=== PATIENT | female | born 1985 | race Caucasian/White ===

== ENCOUNTER 2017-02-04 18:35 | Inpatient (IN) | payer MEDICAID, OTHER ==
[~2017-02-04] VITALS: Ht 157.5 cm; Wt 65.5 kg
[2017-02-04] MEDS ORDERED: ADDE1TAB14 PO (19:47)
[2017-02-04] MEDS ORDERED: TRAZ-136 PO (19:47)
[2017-02-04] MEDS ORDERED: ADDE30CA3 PO (19:47)
[2017-02-04] MEDS ORDERED: CLON-412 PO (19:47)
[2017-02-04] MEDS ORDERED: VALI10TA PO (19:47)
[2017-02-04] MEDS ORDERED: HYDR50TA70 PO (19:47)
[2017-02-04] MEDS ORDERED: LEVO100T5 PO (19:47)
[2017-02-04 20:03] LABS: MEAN CORPUSCULAR HEMOGLOBIN 31.7 pg (27.0-33.0); MEAN CORPUSCULAR HGB CONC 34.7 g/dl (32.0-36.5); MEAN CORPUSCULAR VOLUME 91.4 fl (80.0-96.0); PLATELET COUNT, AUTOMATED 277 10^3/uL (150-450); RED CELL DISTRIBUTION WIDTH 12.4 % (11.5-14.5)
[2017-02-04 20:22] LABS: CONTROL LINE HCG INT CTR LINE PRESENT
[2017-02-04 20:29] LABS: METHADONE URINE NEGATIVE (NEGATIVE)
[2017-02-04 20:38] LABS: ALBUMIN/GLOBULIN RATIO 1.14 (1.00-1.93); ALKALINE PHOSPHATASE 48 U/L (45-117); ALT/SGPT 18 U/L (12-78); ANION GAP 9 MEQ/L (8-16); AST/SGOT 9 U/L (7-37); BILIRUBIN,DIRECT 0.2 MG/DL (0.0-0.2); BILIRUBIN,TOTAL 0.5 MG/DL (0.2-1.0); BLOOD UREA NITROGEN 10 MG/DL (7-18); CALCIUM LEVEL 8.9 MG/DL (8.5-10.1); CARBON DIOXIDE LEVEL 29 MEQ/L (21-32); CHLORIDE LEVEL 104 MEQ/L (98-107); CREATININE FOR GFR 0.85 MG/DL (0.55-1.02); GLOMERULAR FILTRATION RATE > 60.0 (>60); GLUCOSE, FASTING 88 MG/DL (70-105); POTASSIUM SERUM 3.4 MEQ/L (3.5-5.1); SODIUM LEVEL 142 MEQ/L (136-145); TOTAL PROTEIN 7.5 GM/DL (6.4-8.2)
[2017-02-04] MEDS ORDERED: MOM 30ML SUSPENSION UDC PO PRN (21:45)
[2017-02-04] MEDS ORDERED: MAALOX 30 ML SUSP *UDC PO PRN (21:45)
[2017-02-04] MEDS ORDERED: traZODone 50 MG TAB PO PRN ×2 (21:45→23:15)
[2017-02-04 22:17] VITALS: BP 116/80
[2017-02-05] MEDS: diazePAM 5 MG TAB PO PRN ×2 (00:22→14:14)
[2017-02-05] MEDS ORDERED: LEVOTHYROXINE 100MCG TABLET (0.1MG) PO SCH (06:00)
[2017-02-05 07:12] VITALS: BP 114/65
[2017-02-05] MEDS: ACETAMINOPHEN TAB 650MG DOSE (2X325MG) PO PRN ×3 (08:28→20:20)
[2017-02-05] MEDS ORDERED: hydrOXYzine 50 MG TAB PO SCH (09:00)
[2017-02-05] MEDS ORDERED: traZODone 100 MG TAB PO PRN (13:47)
[2017-02-05] MEDS ORDERED: ADDERALL 5 MG TAB PO ONE (14:00)
[2017-02-05 18:36] VITALS: BP 123/65
[2017-02-05 20:19] VITALS: BP 108/64
[2017-02-05] MEDS ORDERED: cloNIDine 0.1 MG TAB PO SCH (21:00)
--- NOTE | 2017-02-05 22:40 | REPUSA ---
CT of the abdomen and pelvis without contrast Clinical statement: Pain. Technique: Multiple axial CT images were obtained from the base of the lungs to the floor of the pelv is utilizing 5 mm axial slices without administration of contrast. Coronal and sagittal reconstructio ns were also obtained. No comparison is available. Findings: Chest: The visualized lung bases are clear. Abdomen: The kidneys are normal in size bilaterally. There is extensive bilateral nephrolithiasis. Th ere is moderately severe right-sided hydronephrosis and hydroureter, caused by a 4 [address] sto ne in the proximal right ureter. The liver, spleen, pancreas, and adrenal glands are unremarkable. Th e aorta demonstrates normal caliber and contour. There is no abdominal lymphadenopathy or ascites. Pelvis: The bowel is unremarkable, with no obstructive or inflammatory changes. The appendix is nathalie l. The urinary bladder is within normal limits. There is no pelvic lymphadenopathy or ascites. The ot her pelvic structures appear unremarkable. Bones: There are no suspicious osseous abnormalities seen. Impression: 1. Moderately severe right-sided hydronephrosis and hydroureter caused by a 4 mm obstructing stone in the proximal right ureter. 2. Extensive bilateral nephrolithiasis. 3. No obstructive or inflammatory bowel changes.
[2017-02-06] MEDS ORDERED: TYLE650T35 PO (00:57)
[2017-02-06] MEDS ORDERED: CLONI1TA PO (00:57)
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
== END 2017-02-06 00:13 | disposition short-term general hospital (02) | DRG 755 ==
LOC: M ED 18:35 → M ED INP 21:33 → M PSY 22:07
PROVIDERS: ADMIT Psychiatry & Neurology Psychiatry; ATTEND Psychiatry & Neurology Psychiatry
DX: F43.20 Adjustment disorder, unspecified (principal); N13.2 Hydronephrosis with renal and ureteral calculous obstruction; F60.3 Borderline personality disorder; F43.10 Post-traumatic stress disorder, unspecified; F90.8 Attention-deficit hyperactivity disorder, other type; E03.9 Hypothyroidism, unspecified; Z88.0 Allergy status to penicillin; Z91.040 Latex allergy status; Z91.018 Allergy to other foods; Z90.49 Acquired absence of other specified parts of digestive tract; Z79.899 Other long term (current) drug therapy

== ENCOUNTER 2018-08-02 14:46 | Emergency (ER) | payer OTHER ==
[~2018-08-02] VITALS: Ht 157.5 cm; Wt 75.0 kg
[~2018-08-02 14:46] MED LIST: ADDE1TAB14 PO; ADDE30CA3 PO; CLON-412 PO; CLONI1TA PO; HYDR50TA70 PO; LEVO100T5 PO; TRAZ-163 PO; TYLE650T35 PO; VALI10TA PO
[2018-08-02] MEDS ORDERED: PRED20TA PO (14:59)
[2018-08-02] MEDS ORDERED: TIZA4CAP6 PO (14:59)
[2018-08-02] MEDS ORDERED: LEVO75TA4 (14:59)
[2018-08-02] MEDS ORDERED: ALPR1TAB3 (14:59)
[2018-08-02] MEDS ORDERED: KETOROLAC 60 MG/2 ML VIAL (J1885) IM ONE (15:30)
[2018-08-02] MEDS ORDERED: diazePAM 5 MG TAB PO ONE (15:30)
[2018-08-02] MEDS ORDERED: CYCL10TA PO (16:51)
[2018-08-02] MEDS ORDERED: SM 88TAB PO (16:51)
[2018-08-02] MEDS ORDERED: ULTR50TA8 PO (16:51)
[2018-08-02] MEDS ORDERED: PRED10TA2 PO (16:51)
[2018-08-02 16:56] VITALS: BP 119/57
== END 2018-08-02 17:06 | disposition home or self-care (01) ==
LOC: M ED 14:46
DX: M50.30 Other cervical disc degeneration, unspecified cervical region (principal); M54.12 Radiculopathy, cervical region; E03.9 Hypothyroidism, unspecified; G43.909 Migraine, unspecified, not intractable, without status migrainosus; K21.9 Gastro-esophageal reflux disease without esophagitis; F41.9 Anxiety disorder, unspecified; F43.10 Post-traumatic stress disorder, unspecified; F90.9 Attention-deficit hyperactivity disorder, unspecified type
CPT/HCPCS: 96372; 99283; J1885

== ENCOUNTER 2018-08-05 20:25 | Emergency (ER) | payer OTHER ==
[~2018-08-05] VITALS: Ht 157.5 cm; Wt 77.3 kg
[~2018-08-05 20:25] MED LIST changes: +ALPR1TAB3; +CYCL10TA PO; +LEVO75TA4; +PRED10TA2 PO; +PRED20TA PO; +SM 88TAB PO; +TIZA4CAP6 PO; +ULTR50TA8 PO
--- NOTE | 2018-08-05 21:24 | ECGEPIP ---
Stationary ECG Study [facility] - ED Test Date: 2018-08-05 Pat Name: SAMINA LEWIS Department: Room: - Gender: F Post Doc Fellowship: CHANEL : 1985 Requested By: MERVIN Higgins PA-C Order Number: [id number] Reading MD: Valeria Echeverria Measurements Intervals [place] Rate: 93 P: 50 AR: 134 QRS: 58 QRSD: 93 T: 35 QT: 342 QTc: 427 Interpretive Statements SINUS RHYTHM NO PRIOR FOR COMPARISON Electronically Signed On 08-05-2018 21:24:24 EDT by Valeria Echeverria
[2018-08-05] MEDS ORDERED: KETOROLAC 30 MG/ML VIAL (J1885) IV ONE (21:45)
[2018-08-05 22:22] LABS: INR 0.89; PROTHROMBIN TIME 12.1 SECONDS (12.1-14.4)
[2018-08-05 22:23] LABS: HCG, SERUM QUALITATIVE NEGATIVE (NEGATIVE)
[2018-08-05 22:31] LABS: BLOOD UREA NITROGEN 12 MG/DL (7-18); CALCIUM LEVEL 8.1 MG/DL (8.5-10.1); CARBON DIOXIDE LEVEL 33 MEQ/L (21-32); CHLORIDE LEVEL 103 MEQ/L (98-107); CK-MB VALUE MASS < 1.0 NG/ML (<3.6); CPK CREATINE PHOSPHOKINASE 39 U/L (26-192); CREATININE FOR GFR 0.88 MG/DL (0.55-1.30); GLOMERULAR FILTRATION RATE > 60.0 (>60); GLUCOSE, FASTING 86 MG/DL (70-100); MB/CK RELATIVE INDEX 2.56 (< OR =4); POTASSIUM SERUM 3.6 MEQ/L (3.5-5.1); SODIUM LEVEL 140 MEQ/L (136-145); TROPONIN I < 0.02 NG/ML (< 0.10)
[2018-08-05] MEDS ORDERED: ISOVUE-370 76% 100ML VIAL (Q9967) As Ordered ONE (23:05)
--- NOTE | 2018-08-06 00:11 | REPVR ---
EXAM: CT Angiography Chest With Contrast EXAM DATE/TIME: 08/05/2018 11:11 PM CLINICAL HISTORY: 32 years old, female; Chest pain; Additional info: Cp TECHNIQUE: Imaging protocol: Axial computed tomographic angiography images of the chest with intravenous contrast using CT angiography protocol. Coronal and sagittal reformatted images were created and reviewed. 3D rendering: MIP reconstructed images were created and reviewed. Radiation optimization: All CT scans at this facility use at least one of these dose optimization techniques: automated exposure control; mA and/or kV adjustment per patient size (includes targeted exams where dose is matched to clinical indication); or iterative reconstruction. Contrast material: ISO 370; Contrast volume: 75 ml; Contrast route: IV; COMPARISON: CR Chest, 1 view 08/05/2018 10:11 PM FINDINGS: Pulmonary arteries: The main pulmonary artery measures 25 mm. No pulmonary embolism is identified. Aorta: The ascending thoracic aorta measures 24 mm. Lungs: Minimal dependent atelectasis. Pleural space: Normal. No pneumothorax. No pleural effusion. Heart: Normal. No cardiomegaly. No pericardial effusion. Mediastinum: There is soft tissue conforming to the anterior mediastinum consistent with residual thymic tissue. Gallbladder and bile ducts: Status post cholecystectomy. Lymph nodes: Unremarkable. No enlarged lymph nodes. Bones/joints: Unremarkable. No acute fracture. Soft tissues: Unremarkable. IMPRESSION: 1. Status post cholecystectomy. 2. Otherwise negative CTA chest. No pulmonary embolism is identified. Electronically signed by: Henri Marques On 08/06/2018 00:10:37 AM
[2018-08-06] MEDS ORDERED: MORPHINE 4 MG/ML 1ML VIAL/SYRINGE (J2270) IV ONE (00:45)
[2018-08-06] MEDS ORDERED: ONDANSETRON 4MG/2ML VIAL (J2405) As Ordered ONE (00:57)
--- NOTE | 2018-08-06 00:58 | REP ---
Clinical: Acute chest pain . Comparison: 02/06/2017 . Findings: The mediastinum and cardiac silhouette are stable and within normal limits for portable technique. The lung beach are clear without acute consolidation, effusion, or pneumothorax. Skeletal structures are intact. Impression: No acute cardiopulmonary process appreciated. Electronically Signed by Zach Bruce MD 08/06/2018 12:50 A
[2018-08-06 01:03] VITALS: BP 103/63
[2018-08-06] MEDS ORDERED: ONDANSETRON 4MG/2ML VIAL (J2405) IV PRN (01:15)
== END 2018-08-06 01:15 | disposition home or self-care (01) ==
LOC: M ED 20:25
DX: S16.1XXA Strain of muscle, fascia and tendon at neck level, initial encounter (principal); X58.XXXA Exposure to other specified factors, initial encounter; Y92.89 Other specified places as the place of occurrence of the external cause; Z79.899 Other long term (current) drug therapy; Z88.0 Allergy status to penicillin; Z91.018 Allergy to other foods; Z91.040 Latex allergy status
CPT/HCPCS: 71045; 71275; 80048; 82550; 82553; 84484; 84703; 85610; 85730; 93005; 96374; 96375; 99284; J1885; J2270; J2405; Q9967

== ENCOUNTER → 2018-11-14 | Outpatient (REF) | payer OTHER ==
[2018-11-14 22:26] LABS: CHLAMYDIA DNA AMPLIFICATION POSITIVE (NEGATIVE); GC DNA AMPLIFICATION NEGATIVE (NEGATIVE)
== END ==
LOC: M SFHCLERA 11:51
PROVIDERS: ATTEND Nurse Practitioner Family
DX: N89.8 Other specified noninflammatory disorders of vagina (principal)

== ENCOUNTER → 2019-02-18 | Outpatient (CLI) | payer OTHER | LOC: M OUTALCOH 08:58 | PROVIDERS: ATTEND Psychiatry & Neurology Psychiatry | DX: Z03.89 Encounter for observation for other suspected diseases and conditions ruled out (principal) ==

== ENCOUNTER → 2019-06-14 | Outpatient (REF) | payer OTHER ==
[~2019-06-14] MED LIST changes: -TRAZ-163 PO; +TRAZ-257 PO
== END ==
LOC: M SFHCLERA 15:34
PROVIDERS: ATTEND Physician Assistant
DX: R50.9 Fever, unspecified (principal)
CPT/HCPCS: 81002; 81025; 82948; 87086; 87804; G0463